=== PATIENT | male | born 1945 | race African-American/Black ===

== ENCOUNTER 2020-11-21 04:28 | Day surgery (SDC) | payer OTHER ==
[2020-11-19 17:45] VITALS: BMI 23.1
[2020-11-21 06:32] LABS: URINE APPEARANCE CLEAR; URINE BILIRUBIN NEGATIVE (NEGATIVE); URINE COLOR YELLOW; URINE GLUCOSE (UA) NEGATIVE (NEGATIVE); URINE KETONE NEGATIVE (NEGATIVE); URINE LEUK ESTERASE NEGATIVE (NEGATIVE); URINE NITRITE NEGATIVE (NEGATIVE); URINE PROTEIN NEGATIVE (NEGATIVE); URINE UROBILINOGEN 0.2 mg/dL (0.2-1.0)
[2020-11-21] MEDS ORDERED: ceFAZolin SODIUM 1 GM VIAL ONE (06:44)
[2020-11-21] MEDS ORDERED: LIDOCAINE HCL/PF 2% SDV 5ML VIAL ONE ×2 (06:44→08:35)
[2020-11-21] MEDS ORDERED: SUCCINYLCHOLINE CHLORIDE 200 MG/10 ML SYRINGE ONE ×2 (06:45→08:30)
[2020-11-21] MEDS ORDERED: EPHEDRINE SULFATE/0.9% NACL/PF 50 MG/10 ML SYRINGE NR ONE ×2 (06:45→07:57)
[2020-11-21] MEDS ORDERED: PROPOFOL 20 ML ONE ×3 (06:46)
[2020-11-21] MEDS ORDERED: ceFAZolin SODIUM 1 GM VIAL IVPB ONE (08:12)
[2020-11-21] MEDS ORDERED: ACETAMINOPHEN INJECTION 100 ML IVPB ONE (08:27)
[2020-11-21] MEDS ORDERED: BACITRACIN 15 GM TUBE TOPICAL OINTMENT ONE (08:43)
[2020-11-21 15:00] VITALS: BP 160/78; PULSE 87; TEMP 98.1
== END 2020-11-21 13:50 | disposition home or self-care (01) ==
LOC: JASU-SURG 04:28
PROVIDERS: ATTEND Urology
PROC: 0V503ZZ Destruction of Prostate, Percutaneous Approach (ICD-10-PCS; principal; 2020-11-21 08:00)
DX: C61 Malignant neoplasm of prostate (principal)
CPT/HCPCS: 55873; C2618; 81003; 94760; J0131